=== PATIENT | female | born 2000 | race Caucasian/White ===

== ENCOUNTER 2022-04-18 21:11 | Emergency (ER) | payer OTHER ==
[~2022-04-18] VITALS: Ht 170.2 cm; Wt 70.7 kg
[2022-04-19] MEDS ORDERED: KETOROLAC 30 MG/ML 1ML VIAL IV ONE (01:10)
[2022-04-19] MEDS ORDERED: diphenhydrAMINE 50MG/ML VIAL IV ONE (01:10)
[2022-04-19] MEDS ORDERED: NS 1,000 ML IV ONE (01:10)
[2022-04-19] MEDS ORDERED: METOCLOPRAMIDE INJ 10MG/2ML VIAL IV ONE (01:10)
[2022-04-19 02:26] LABS: BASO % 0.7 % (0.0-1.0); EOS # 0.1 10^3/uL (0.0-0.5); EOS % 2.1 % (0.0-3.0); HEMATOCRIT 37.3 % (36.0-47.0); HEMOGLOBIN 11.7 g/dl (12.0-15.5); LYMPH % 48.5 % (24.0-44.0); MEAN CORPUSCULAR HEMOGLOBIN 28.3 pg (27.0-33.0); MEAN CORPUSCULAR HGB CONC 31.4 g/dl (32.0-36.5); MEAN CORPUSCULAR VOLUME 90.3 fl (80.0-96.0); MONO # 0.6 10^3/uL (0.0-0.8); MONO % 9.3 % (2.0-8.0); NEUTROPHILS # 2.4 10^3/uL (1.5-8.5); NEUTROPHILS % 39.2 % (36.0-66.0); PLATELET COUNT, AUTOMATED 174 10^3/uL (150-450); RED BLOOD COUNT 4.13 10^6/uL (4.00-5.40); WHITE BLOOD COUNT 6.1 10^3/uL (4.0-10.0)
[2022-04-19] MEDS ORDERED: RIZA5TAB2 PO ×2 (02:38→02:39)
[2022-04-19 02:48] VITALS: BP 97/56
== END 2022-04-19 03:18 | disposition home or self-care (01) ==
LOC: M ED 21:11
DX: G43.709 Chronic migraine without aura, not intractable, without status migrainosus (principal); Z88.1 Allergy status to other antibiotic agents; Z88.8 Allergy status to other drugs, medicaments and biological substances
CPT/HCPCS: 85025; 96361; 96374; 96375; 99284; J1200; J1885; J2765

== ENCOUNTER 2022-08-26 21:46 | Emergency (ER) | payer OTHER ==
[~2022-08-26] VITALS: Ht 167.6 cm; Wt 65.3 kg
[~2022-08-26 21:46] MED LIST: RIZA5TAB2 PO
[2022-08-26] MEDS ORDERED: NS 1,000 ML IV ONE (22:45)
[2022-08-26] MEDS ORDERED: FAMOTIDINE 20MG/2ML VIAL IVP ONE (22:45)
[2022-08-26] MEDS ORDERED: methylPREDNISolone 125MG 2ML VIAL IV ONE (22:45)
[2022-08-26] MEDS ORDERED: PRED20TA PO (23:45)
[2022-08-26] MEDS ORDERED: PEPC1TAB5 PO (23:45)
[2022-08-27 01:26] VITALS: BP 96/55; TEMP 97.8; O2SAT 97
== END 2022-08-27 01:32 | disposition home or self-care (01) ==
LOC: M ED 21:46
DX: T78.01XA Anaphylactic reaction due to peanuts, initial encounter (principal); L50.9 Urticaria, unspecified; G43.909 Migraine, unspecified, not intractable, without status migrainosus; Z88.1 Allergy status to other antibiotic agents; Z88.8 Allergy status to other drugs, medicaments and biological substances; Z91.010 Allergy to peanuts; Z79.52 Long term (current) use of systemic steroids; Z79.899 Other long term (current) drug therapy
CPT/HCPCS: 96361; 96374; 99284; J2930; S0028

== ENCOUNTER → 2022-09-13 | Outpatient (REF) | payer OTHER ==
[~2022-09-13] MED LIST changes: +PEPC1TAB5 PO; +PRED20TA PO
[2022-09-13 19:09] LABS: GC DNA AMPLIFICATION NEGATIVE (NEGATIVE)
== END ==
LOC: M LAB REF 17:09
PROVIDERS: ATTEND Registered Nurse
DX: Z11.3 Encounter for screening for infections with a predominantly sexual mode of transmission (principal)

== ENCOUNTER 2022-11-04 12:15 | Emergency (ER) | payer OTHER ==
[~2022-11-04] VITALS: Ht 167.6 cm; Wt 63.6 kg
[2022-11-04] MEDS ORDERED: METOCLOPRAMIDE INJ 10MG/2ML VIAL IV ONE (14:30)
[2022-11-04] MEDS ORDERED: diphenhydrAMINE 50MG/ML VIAL IV ONE (14:30)
[2022-11-04] MEDS ORDERED: KETOROLAC 30 MG/ML 1ML VIAL IV ONE (14:30)
[2022-11-04 16:34] VITALS: BP 119/57; TEMP 98.2; O2SAT 99
== END 2022-11-04 16:36 | disposition home or self-care (01) ==
LOC: M ED 12:15
DX: G43.709 Chronic migraine without aura, not intractable, without status migrainosus (principal); Z88.1 Allergy status to other antibiotic agents; Z88.8 Allergy status to other drugs, medicaments and biological substances; Z79.52 Long term (current) use of systemic steroids
CPT/HCPCS: 96374; 96375; 99284; J1100; J1200; J1885; J2765

== ENCOUNTER 2023-03-27 14:46 | Emergency (ER) | payer OTHER ==
[~2023-03-27] VITALS: Ht 167.6 cm; Wt 59.6 kg
[2023-03-27 14:47] VITALS: BP 105/51; TEMP 98.5; O2SAT 99
== END 2023-03-27 15:22 | disposition home or self-care (01) ==
LOC: M ED 14:46
DX: K64.8 Other hemorrhoids (principal); Z88.1 Allergy status to other antibiotic agents; Z88.8 Allergy status to other drugs, medicaments and biological substances

== ENCOUNTER 2023-05-13 20:21 | Emergency (ER) | payer OTHER ==
[~2023-05-13] VITALS: Ht 170.2 cm; Wt 56.2 kg
[2023-05-14 00:31] LABS: RSV AMPLIFICATION NEGATIVE (NEGATIVE)
[2023-05-14] MEDS ORDERED: IBUP-1022 PO (00:55)
[2023-05-14 01:06] VITALS: BP 106/51; TEMP 96.9; O2SAT 98
== END 2023-05-14 01:13 | disposition home or self-care (01) ==
LOC: M ED 20:21
DX: J02.9 Acute pharyngitis, unspecified (principal); Z88.8 Allergy status to other drugs, medicaments and biological substances; Z88.1 Allergy status to other antibiotic agents; Z79.1 Long term (current) use of non-steroidal anti-inflammatories (NSAID)

== ENCOUNTER 2023-05-19 10:28 | Emergency (ER) | payer OTHER ==
[~2023-05-19] VITALS: Ht 167.6 cm; Wt 54.5 kg
[~2023-05-19 10:28] MED LIST changes: +IBUP-1022 PO
[2023-05-19 12:13] LABS: BASO % 0.8 % (0.0-1.0); EOS % 1.1 % (0.0-3.0); HEMATOCRIT 43.3 % (36.0-47.0); HEMOGLOBIN 13.9 g/dl (12.0-15.5); LYMPH # 1.2 10^3/uL (1.5-5.0); LYMPH % 34.6 % (24.0-44.0); MEAN CORPUSCULAR HEMOGLOBIN 28.8 pg (27.0-33.0); MEAN CORPUSCULAR HGB CONC 32.1 g/dl (32.0-36.5); MEAN CORPUSCULAR VOLUME 89.6 fl (80.0-96.0); MONO # 0.6 10^3/uL (0.0-0.8); MONO % 15.4 % (2.0-8.0); NEUTROPHILS # 1.7 10^3/uL (1.5-8.5); NEUTROPHILS % 47.8 % (36.0-66.0); PLATELET COUNT, AUTOMATED 158 10^3/uL (150-450); RED BLOOD COUNT 4.83 10^6/uL (4.00-5.40); WHITE BLOOD COUNT 3.6 10^3/uL (4.0-10.0)
[2023-05-19 12:44] LABS: ALBUMIN 4.5 G/DL (3.2-5.2); BILIRUBIN,DIRECT 0.2 MG/DL (<0.4); BILIRUBIN,TOTAL 0.5 MG/DL (0.3-1.2); TOTAL PROTEIN 7.4 G/DL (5.7-8.2)
[2023-05-19] MEDS ORDERED: ISOVUE-370 76% 100ML VIAL As Ordered ONE (12:58)
[2023-05-19] MEDS: NS 500 ML IV ONE (13:07)
[2023-05-19] MEDS: KETOROLAC 30 MG/ML 1ML VIAL IV ONE (13:08)
[2023-05-19] MEDS: ONDANSETRON 4MG 2ML VIAL IV ONE (13:08)
[2023-05-19 14:40] VITALS: BP 92/60; TEMP 97.8; O2SAT 98
== END 2023-05-19 14:41 | disposition home or self-care (01) ==
LOC: M ED 10:28
DX: A09 Infectious gastroenteritis and colitis, unspecified (principal); G43.809 Other migraine, not intractable, without status migrainosus; F12.10 Cannabis abuse, uncomplicated; F10.10 Alcohol abuse, uncomplicated; Z88.1 Allergy status to other antibiotic agents; Z88.8 Allergy status to other drugs, medicaments and biological substances
CPT/HCPCS: 74177; 80047; 80076; 81001; 83690; 84702; 85025; 96374; 99284; J1885; J2405; Q9967

== ENCOUNTER 2023-05-22 22:37 | Emergency (ER) | payer OTHER ==
[~2023-05-22] VITALS: Ht 167.6 cm; Wt 55.6 kg
[2023-05-23] MEDS ORDERED: MEDR4PAK PO (00:48)
[2023-05-23] MEDS ORDERED: PEPC1TAB5 PO (00:48)
[2023-05-23] MEDS: diphenhydrAMINE 25MG CAP PO ONE (00:54)
[2023-05-23 01:04] VITALS: BP 103/59; TEMP 98; O2SAT 100
== END 2023-05-23 01:08 | disposition home or self-care (01) ==
LOC: M ED 22:37
DX: R21 Rash and other nonspecific skin eruption (principal); T78.40XA Allergy, unspecified, initial encounter; G43.909 Migraine, unspecified, not intractable, without status migrainosus; Z88.8 Allergy status to other drugs, medicaments and biological substances; Z88.1 Allergy status to other antibiotic agents; Z79.899 Other long term (current) drug therapy